=== PATIENT | female | born 1990 | race Caucasian/White ===

== ENCOUNTER 2018-03-26 20:13 | Inpatient (IN) | payer MEDICAID ==
[2018-03-26] MEDS ORDERED: HYDROCODONE/APAP (5/325) TAB PO (22:00)
[2018-03-26] MEDS ORDERED: MISOPROSTOL 200 MCG TAB PR (22:00)
[2018-03-26] MEDS ORDERED: BUTORPHANOL 2 MG INJ IV (22:00)
[2018-03-26] MEDS ORDERED: CARBOPROST 250 MCG INJ IM (22:00)
[2018-03-26] MEDS ORDERED: IBUPROFEN 600 MG TAB PO (22:00)
[2018-03-26] MEDS ORDERED: METHYLERGONOVINE 0.2 MG INJ IM (22:00)
[2018-03-26] MEDS ORDERED: LIDOCAINE 1% (MPF) 30 ML INJ INJ (22:00)
[2018-03-26] MEDS ORDERED: OXYTOCIN 30 UNITS/LR 500 ML IV (22:00)
[2018-03-26] MEDS: AMPICILLIN 2 GM/NS (PMX) 100 ML IV (23:28)
[2018-03-26] MEDS: LACTATED RINGER'S 1,000 ML IV* (23:28)
[2018-03-26 23:41] LABS: RUPTURE FETAL MEMBRANES POSITIVE (NEGATIVE)
[2018-03-27 00:12] LABS: ADD MAN DIFF? NO
[2018-03-27 00:29] LABS: WHITE BLOOD COUNT 11.1 10^3/ul (4.8-10.8)
[2018-03-27 00:29] LABS: BASOPHILS % 0.4 % (0.0-2.0); EOSINOPHILS # 0.1 10^3/ul (0.0-0.5); EOSINOPHILS % 0.7 % (0.0-7.0); HEMATOCRIT 38.9 % (37.0-47.0); HEMOGLOBIN 13.1 g/dl (12.0-16.0); LYMPHOCYTES # 2.1 10^3/ul (0.8-2.9); LYMPHOCYTES % 18.5 % (15.0-51.0); MEAN CORPUSCULAR HEMOGLOBIN 30.5 pg (29.0-33.0); MEAN CORPUSCULAR HGB CONC 33.7 g/dl (32.0-37.0); MEAN CORPUSCULAR VOLUME 90.7 fl (82.0-101.0); MEAN PLATELET VOLUME 12.4 fl (7.4-10.4); MONOCYTE # 0.7 10^3/ul (0.3-0.9); MONOCYTES % 6.2 % (0.0-11.0); NEUTROPHIL # 8.1 10^3/ul (1.6-7.5); NEUTROPHILS % 73.1 % (39.0-77.0); PLATELET COUNT 154 10^3/UL (140-415); RED BLOOD COUNT 4.29 10^6/ul (4.20-5.40); RED CELL DISTRIBUTION WIDTH 13.5 % (11.5-14.5)
[2018-03-27 00:37] LABS: INR 0.82; PROTIME 11.4 Sec (11.9-14.9); PT RATIO 0.9
[2018-03-27 00:38] LABS: AMPHETAMINE/METHAMPHETAMINE Negative (NEGATIVE); BARBITURATES Negative (NEGATIVE); BENZODIAZEPINES Negative (NEGATIVE); CANNABINOIDS Positive (NEGATIVE); COCAINE Negative (NEGATIVE); OPIATES Negative (NEGATIVE); PARTIAL THROMBOPLASTIN TIME 28.3 Sec (25.0-35.0)
[2018-03-27 01:05] LABS: HEPATITIS B SURFACE ANTIGEN NEGATIVE (NEGATIVE)
[2018-03-27 01:24] LABS: HIV 1&2 ANTIBODY NEGATIVE (NEGATIVE)
[2018-03-27] MEDS: AMPICILLIN 1 GM/NS (PMX) 50 ML IV ×6 (03:12→21:56)
[2018-03-27] MEDS ORDERED: FENTAnyl 2MCG/ML-ROPIV 0.2% 100 ML (11:19)
[2018-03-27] MEDS: LACTATED RINGER'S 1,000 ML IV* ×3 (11:23→17:52)
[2018-03-27] MEDS ORDERED: NALOXONE (0.4 MG/ML) INJ IV (11:30)
[2018-03-27] MEDS ORDERED: DIPHENHYDRAMINE 50 MG INJ IV (11:30)
[2018-03-27] MEDS ORDERED: ONDANSETRON 4 MG INJ IV (11:30)
[2018-03-27 14:57] LABS: RAPID PLASMA REAGIN NONREACTIVE (NR)
[2018-03-27] MEDS: FENTAnyl 2MCG/ML-ROPIV 0.2% 100 ML BAG EPI (20:07)
[2018-03-28] MEDS: OXYTOCIN 30 UNITS/LR 500 ML IV ×3 (00:15→05:48)
[2018-03-28] MEDS: LACTATED RINGER'S 1,000 ML IV* ×3 (00:36→16:46)
[2018-03-28] MEDS ORDERED: MISOPROSTOL 200 MCG TAB PR (01:00)
[2018-03-28] MEDS ORDERED: BENZOCAINE 20% 56 ML SPRAY TOP (01:00)
[2018-03-28] MEDS ORDERED: METHYLERGONOVINE 0.2 MG INJ IM (01:00)
[2018-03-28] MEDS ORDERED: OXYTOCIN 30 UNITS/LR 500 ML IV (01:00)
[2018-03-28] MEDS ORDERED: CARBOPROST 250 MCG INJ IM (01:00)
[2018-03-28] MEDS ORDERED: HYDROCODONE/APAP (5/325) TAB PO (01:00)
[2018-03-28] MEDS: IBUPROFEN 600 MG TAB PO ×3 (06:00→18:04)
[2018-03-28] MEDS: LANOLIN 7 GM TUBE TOP (09:55)
[2018-03-29] MEDS: IBUPROFEN 600 MG TAB PO ×4 (00:41→17:56)
[2018-03-29 09:49] LABS: ADD MAN DIFF? NO
[2018-03-29 09:55] LABS: BASOPHILS % 0.3 % (0.0-2.0); EOSINOPHILS # 0.1 10^3/ul (0.0-0.5); EOSINOPHILS % 1.3 % (0.0-7.0); HEMATOCRIT 39.4 % (37.0-47.0); HEMOGLOBIN 13.2 g/dl (12.0-16.0); LYMPHOCYTES # 1.8 10^3/ul (0.8-2.9); LYMPHOCYTES % 18.5 % (15.0-51.0); MEAN CORPUSCULAR HEMOGLOBIN 30.8 pg (29.0-33.0); MEAN CORPUSCULAR HGB CONC 33.5 g/dl (32.0-37.0); MEAN CORPUSCULAR VOLUME 92.1 fl (82.0-101.0); MEAN PLATELET VOLUME 11.8 fl (7.4-10.4); MONOCYTE # 0.4 10^3/ul (0.3-0.9); MONOCYTES % 4.4 % (0.0-11.0); NEUTROPHIL # 7.2 10^3/ul (1.6-7.5); NEUTROPHILS % 74.7 % (39.0-77.0); PLATELET COUNT 134 10^3/UL (140-415); RED BLOOD COUNT 4.28 10^6/ul (4.20-5.40); RED CELL DISTRIBUTION WIDTH 13.6 % (11.5-14.5)
[2018-03-29 09:55] LABS: WHITE BLOOD COUNT 9.7 10^3/ul (4.8-10.8)
[2018-03-29] MEDS ORDERED: LACTATED RINGER'S 1,000 ML IV (17:30)
[2018-03-30] MEDS: IBUPROFEN 600 MG TAB PO ×3 (06:12→11:49)
[2018-03-30] MEDS: DIPHTH/TET/ACEL PERTUSS (ADULT) 0.5 ML VIAL IM* (09:40)
[2018-03-30 09:42] LABS: RUBELLA ANTIBODY - IGG 7.57 index
[2018-04-01 12:47] LABS: RUBELLA ANTIBODY - IGM <20.00 AU/mL
== END 2018-03-30 12:30 | disposition home or self-care (01) | DRG 775 ==
LOC: OBT 20:13 → PP1 03-28 02:28 → L-D 20:23 → OBT 21:45 → L-D 21:45
PROC: 10E0XZZ Delivery of Products of Conception, External Approach (ICD-10-PCS; principal; 2018-03-28)
PROC: 0UQMXZZ Repair Vulva, External Approach (ICD-10-PCS; 2018-03-28)
DX: O24.420 Gestational diabetes mellitus in childbirth, diet controlled (principal); O70.0 First degree perineal laceration during delivery; Z3A.38 38 weeks gestation of pregnancy; Z37.0 Single live birth
CPT/HCPCS: 62319; 80307; 82962; 84112; 85025; 85610; 85730; 86592; 86703; 86762; 86850; 86900; 86901; 87340